=== PATIENT | male | born 1955 | race Caucasian/White ===

== ENCOUNTER 2016-12-08 08:38 | Day surgery (SDC) | payer BC, OTHER ==
[~2016-12-08 08:38] MED LIST: ACETAMINOPHEN 325 MG TABLET PO PRN; ACETYLCHOLINE CHLORIDE 20 DROP KIT IO PRN; BUPIVACAINE HCL/PF 30 ML VIAL IJ PRN; CYCLOPENTOLATE HCL 20 DROP BTL LEFTEYE PRN; DEXTROSE 5%-0.5 NORMAL SALINE 1,000 ML IV PRN; EPINEPHrine 1 MG/ML AMPUL IO PRN; HYALURONATE SODIUM 0.4 ML DISP.SYRIN IO PRN; HYALURONATE SODIUM 0.85 ML DISP.SYRIN IO PRN; LIDOCAINE HCL/PF 200 MG/5 ML AMPUL TP PRN; LIDOCAINE HCL/PF 5 ML VIAL IO PRN; NORMAL SALINE 3 ML BOX IV PRN; TETRACAINE HCL 150 DROP BTL OP PRN
[2016-12-08] MEDS: TROPICAMIDE 150 DROP BTL LEFTEYE PRN ×3 (09:26→09:47)
[2016-12-08] MEDS: PHENYLEPHRINE HCL 50 DROP BTL LEFTEYE PRN ×3 (09:26→09:47)
[2016-12-08] MEDS ORDERED: DEXTROSE 5%-0.5 NORMAL SALINE 1,000 ML IV ONE (09:46)
[2016-12-08 12:01] VITALS: BP 98/75
== END 2016-12-08 08:39 | disposition home or self-care (01) ==
LOC: AMB 08:38
PROVIDERS: ATTEND Ophthalmology
PROC: 08RK3JZ Replacement of Left Lens with Synthetic Substitute, Percutaneous Approach (ICD-10-PCS; principal; 2016-12-08 10:00)
DX: H26.9 Unspecified cataract (principal); I10 Essential (primary) hypertension; I25.10 Atherosclerotic heart disease of native coronary artery without angina pectoris; E78.00 Pure hypercholesterolemia, unspecified; Z87.891 Personal history of nicotine dependence; Z68.25 Body mass index [BMI] 25.0-25.9, adult

== ENCOUNTER 2016-12-22 10:28 | Day surgery (SDC) | payer BC ==
[~2016-12-22 10:28] MED LIST changes: -CYCLOPENTOLATE HCL 20 DROP BTL LEFTEYE PRN; +CYCLOPENTOLATE HCL 20 DROP BTL RIGHTEYE PRN; -TETRACAINE HCL 150 DROP BTL OP PRN
--- OUTSIDE RECORDS SUMMARY | 2016-12-22 10:33 | XMS REPORT | Summary of Care ---
:1955 Author Organization [facility] Address [address] [place] [address] Care Team Providers Name Role Phone Dontrell Quezada Primary Care Physician Encounter Date(s): 11/25/16 - 11/25/16 [facility] Cammy Dodd, [address] [place], [place] [address] Discharge Disposition: 01 Discharged to Home or Self Care Attending Physician: Kota Flores DO Referring Physician: Dontrell Quezada MD Vital Signs Most recent to oldest [Reference Range]: 1 Peripheral Pulse Rate [60-100 bpm] 66 bpm (11/25/16 8:54 AM) Blood Pressure [90-130/60-90 mmHg] 108/67mmHg (11/25/16 8:54 AM) Mean Arterial Pressure, Cuff 81 mmHg (11/25/16 8:54 AM) Height/Length Measured 167 cm (11/25/16 8:54 AM) Weight Dosing 72.40 kg1 (11/25/16 8:59 AM) Weight Measured 72.4 kg (11/25/16 8:54 AM) BSA Measured 1.81 m2 (11/25/16 8:54 AM) Body Mass Index Measured 25.96 kg/m2 (11/25/16 8:54 AM) 1Result Comment: This result was because the dosing weight was either not entered or it is>30 days old. This result is based off: Weight Measured November 25, 2016 08:54:00 [employer]SEM[employer] by Jayleen Barton [employer] Problem List Condition Effective Dates Status Health Status Informant Benign essential Active hypertension(Confirmed) CAD - Coronary artery Active disease(Confirmed) H/O: TIA(Confirmed) Active Lung cancer(Confirmed) Active PURE HYPERCHOLESTEROLEMIA(Confirmed) Active Allergies, Adverse Reactions, Alerts No Known Allergies Medications amoxicillin 875 mg oral tablet 1 tab(s), Oral, BID, # 20 tab(s), 0 Refill(s), Start Date: 08/25/14 16:21:00 CDT , Pharmacy: [facility] Start Date: 08/25/14 Stop Date: 05/25/15 Status: Completedaspirin 325 mg oral tablet 1 tab(s), Oral, Daily, # 30 tab(s), 0 Refill(s) Start Date: 02/24/14 Stop Date: 06/12/15 Status: Completedaspirin 81 mg oral tablet 1 tab(s), Oral, Daily, # 30 tab(s), 0 Refill(s), Start Date: 06/12/15 8:07:00 CDT Start Date: 06/12/15 Status: OrderedAugmentin 875 mg-125 mg oral tablet 1 tab(s), Oral, q12hr, Previously sent to wrong pharmacy, # 14 tab(s), 0 Refill( s), Start Date: 08/30/15 13:12:39 CDT, Pharmacy: [place], [place] Start Date: 08/30/15 Stop Date: 10/27/15 Status: DiscontinuedAugmentin 875 mg-125 mg oral tablet 1 tab(s), Oral, q12hr, X 7 days, # 14 tab(s), 0 Refill(s), Start Date: 08/30/15 12:03:00 CDT, Pharmacy: [facility] Start Date: 08/30/15 Stop Date: 08/30/15 Status: CompletedAzithromycin 5 Day Dose Pack 250 mg oral tablet 1 packet(s), Oral, Per Package Label, as directed on package labeling, # 6 tab(s ), 0 Refill(s), Start Date: 09/20/15 10:42:00 [employer], Pharmacy: [place], [place] Start Date: 09/20/15 Stop Date: 10/27/15 Status: DiscontinuedDilaudid 2 mg oral tablet 1or 2 tabs tab(s), Oral, q4hr, PRN pain severe 8-10, # 60 tab(s), 0 Refill(s), Start Date: 07/27/15 11:58:00 CDT, other reason (Rx) Start Date: 07/27/15 Stop Date: 10/27/15 Status: Discontinuedgabapentin 300 mg oral capsule 1 cap(s), Oral, BID, # 30 cap(s), 3 Refill(s), Start Date: 01/04/16 16:04:00 [employer] , Pharmacy: [place], [place] Start Date: 01/04/16 Stop Date: 10/17/16 Status: Completedlisinopril 10 mg oral tablet 1 tab(s), Oral, Daily, Make appt prior to more fills, # 30 tab(s), 0 Refill(s), Start Date: 05/04/15 12:12:56 CDT, Pharmacy: [place], [place] Start Date: 05/04/15 Stop Date: 05/25/15 Status: Completedlisinopril 10 mg oral tablet 1 tab(s), Oral, Daily, # 30 tab(s), 5 Refill(s), Start Date: 05/25/15 16:14:12 CDT, Pharmacy: [place] Start Date: 05/25/15 Stop Date: 11/29/15 Status: Completedlisinopril 10 mg oral tablet 1 tab(s), Oral, Daily, # 30 tab(s), 5 Refill(s), Start Date: 10/11/14 11:32:55 [employer], Pharmacy: [place] Start Date: 10/11/14 Stop Date: 05/04/15 Status: Completedlisinopril 10 mg oral tablet 1 tab(s), Oral, Daily, # 30 tab(s), 5 Refill(s), Start Date: 03/10/14 13:27:31 CDT, Pharmacy: [facility] Start Date: 03/10/14 Stop Date: 10/11/14 Status: Completedlisinopril 10 mg oral tablet 1 tab(s), Oral, Daily, # 30 tab(s), 5 Refill(s), Start Date: 11/29/15 10:02:47 [employer], Pharmacy: [place] Start Date: 11/29/15 Stop Date: 06/12/16 Status: Completedlisinopril 10 mg oral tablet 1 tab(s), Oral, Daily, # 30 tab(s), 0 Refill(s) Start Date: 02/20/14 Stop Date: 02/20/14 Status: Discontinuedlisinopril 10 mg oral tablet 1 tab(s), Oral, Daily, # 30 tab(s), 0 Refill(s), Pharmacy: [facility] Start Date: 02/20/14 Stop Date: 03/10/14 Status: Completedlisinopril 10 mg oral tablet 1 tab(s), Oral, Daily, # 30 tab(s), 5 Refill(s), Start Date: 06/12/16 14:05:50 CDT, Pharmacy: [place], [place] Start Date: 06/12/16 Status: Orderednortriptyline 10 mg oral capsule 2 cap(s), Oral, HS, 1 qhs times 5 days then increase to 2 qhs, # 60 cap(s), 0 Refill(s), Start Date: 10/24/15 16:07:00 [employer], Pharmacy: [place] Start Date: 10/24/15 Stop Date: 01/04/16 Status: DiscontinuedPlavix 75 mg oral tablet 1 tab(s), Oral, Daily, 2 Refill(s) Start Date: 02/19/12 Stop Date: 05/25/15 Status: DiscontinuedpredniSONE 10 mg oral tablet See Instructions, [id number],47pob5n, 55jjr5n, # 30 QS, 0 Refill(s), Start Date: 09/12/15 15:35:53 [employer], Pharmacy: [place] Start Date: 09/12/15 Stop Date: 09/24/15 Status: CompletedpredniSONE 10 mg oral tablet See Instructions, [id number],30wbu3x,67qdi0w, 63kox1l, # 30 QS, 0 Refill(s), Start Date: 09/12/15 15:32:00 [employer] Start Date: 09/12/15 Stop Date: 09/12/15 Status: Completedsimvastatin 10 mg oral tablet 1 tab(s), Oral, HS, # 30 tab(s), 0 Refill(s) Start Date: 02/24/14 Stop Date: 04/14/14 Status: Discontinuedsimvastatin 10 mg oral tablet 1 tab(s), Oral, HS, # 30 tab(s), 5 Refill(s), Start Date: 04/14/14 14:30:00 CDT , Pharmacy: [facility] Start Date: 04/14/14 Stop Date: 11/24/14 Status: Completedsimvastatin 10 mg oral tablet 1 tab(s), Oral, HS, # 30 tab(s), 5 Refill(s), Start Date: 05/25/15 16:14:29 CDT , Pharmacy: [place], [place] Start Date: 05/25/15 Stop Date: 01/18/16 Status: Completedsimvastatin 10 mg oral tablet 1 tab(s), Oral, HS, # 30 tab(s), 5 Refill(s), Start Date: 07/18/16 9:15:39 CDT, Pharmacy: [place] Start Date: 07/18/16 Status: Orderedsimvastatin 10 mg oral tablet See Instructions, 1 tab(s) Oral HS, unknown unit, 4 Refill(s), # 30, eRx: [place] Start Date: 01/18/16 Stop Date: 07/18/16 Status: Completedsimvastatin 10 mg oral tablet 1 tab(s), Oral, HS, # 30 tab(s), 5 Refill(s), Start Date: 11/24/14 10:22:10 [employer] , Pharmacy: [place] Start Date: 11/24/14 Stop Date: 05/25/15 Status: CompletedTessalon 200 mg oral capsule 1 cap(s), Oral, TID, X 10 days, # 30 cap(s), 0 Refill(s), Start Date: 09/02/15 11:50:00 [employer] Start Date: 09/02/15 Stop Date: 09/12/15 Status: Completedtopiramate 50 mg oral tablet 1 tab(s), Oral, Daily, # 30 tab(s), 5 Refill(s), Start Date: 06/02/16 13:14:57 CDT, Pharmacy: [place] Start Date: 06/02/16 Status: Orderedtopiramate 50 mg oral tablet 1 tab(s), Oral, Daily, # 30 tab(s), 0 Refill(s) Start Date: 02/06/14 Stop Date: 03/10/14 Status: Completedtopiramate 50 mg oral tablet 1 tab(s), Oral, Daily, # 30 tab(s), 0 Refill(s) Start Date: 02/06/14 Stop Date: 02/06/14 Status: Discontinuedtopiramate 50 mg oral tablet 1 tab(s), Oral, Daily, # 30 tab(s), 5 Refill(s), Start Date: 10/19/14 10:14:32 [employer], Pharmacy: [place] Start Date: 10/19/14 Stop Date: 05/25/15 Status: Completedtopiramate 50 mg oral tablet 1 tab(s), Oral, Daily, # 30 tab(s), 5 Refill(s), Start Date: 05/25/15 16:14:04 CDT, Pharmacy: [place] Start Date: 05/25/15 Stop Date: 11/29/15 Status: Completedtopiramate 50 mg oral tablet 1 tab(s), Oral, Daily, # 30 tab(s), 5 Refill(s), Start Date: 03/10/14 13:28:22 CDT, Pharmacy: [facility] Start Date: 03/10/14 Stop Date: 10/19/14 Status: Completedtopiramate 50 mg oral tablet 1 tab(s), Oral, Daily, # 30 tab(s), 5 Refill(s), Start Date: 11/29/15 10:02:39 [employer], Pharmacy: [place] Start Date: 11/29/15 Stop Date: 06/02/16 Status: CompletedTylenol 500 mg, Oral, q6hr interval, PRN pain mild 1-3, 0 Refill(s) Start Date: 04/04/14 Status: OrderedVitamin B12 100 mcg oral tablet 1 tab(s), Oral, Daily, # 30 tab(s), 0 Refill(s) Start Date: 04/04/14 Status: OrderedVitamin C 500 mg oral tablet 1 tab(s), Oral, Daily, # 30 tab(s), 0 Refill(s), Start Date: 04/04/14 11:17:00 CDT Start Date: 04/04/14 Status: Ordered Results No data available for this section Immunizations No data available for this section Procedures Procedure Date Related Diagnosis Body Site Thoracoscopy with possible thoracotomy (KIM)1 07/19/15 Flexible Bronchoscopy in OR2 07/06/15 Mediastinoscopy3 07/06/15 Colonoscopy4 04/07/14 Carotid endarterectomy2011 Hernia repair Vasectomy 1auto-populated from documented surgical [id number] from documented surgical [id number] from documented surgical [id number] from documented surgical [id number] Social History No data available for this section Assessment and Plan No data available for this section
--- OUTSIDE RECORDS SUMMARY | 2016-12-22 10:33 | XMS REPORT | Summary of Care ---
:1955 Author Organization [facility] Address [address] [place] [id number] Care Team Providers Name Role Phone Dontrell Quezada Primary Care Physician Encounter Date(s): 11/25/16 - 11/25/[address] [address] [facility] Discharge Diagnosis: Preop examination Discharge Diagnosis: Essential (primary) hypertension Discharge Diagnosis: Pure hypercholesterolemia, unspecified Discharge Disposition: 01 Discharged to Home or Self Care Attending Physician: Dontrell Quezada MD Referring Physician: Dontrell Quezada MD Vital Signs Most recent to oldest [Reference Range]: 1 Temperature Tympanic [36.6-38.1 DegC] 35.8 DegC *LOW* (11/25/16 2:42 PM) Temperature C to F 96.4 (11/25/16 2:42 PM) Peripheral Pulse Rate [60-100 bpm] 78 bpm (11/25/16 2:42 PM) Blood Pressure [90-130/60-90 mmHg] 110/58mmHg (11/25/16 2:42 PM) Mean Arterial Pressure, Cuff 75 mmHg (11/25/16 2:42 PM) Height/Length Measured 167 cm (11/25/16 2:42 PM) Weight Dosing 72.2 kg (11/25/16 2:42 PM) Weight Measured 72.2 kg (11/25/16 2:42 PM) BSA Measured 1.81 m2 (11/25/16 2:42 PM) Body Mass Index Measured 25.89 kg/m2 (11/25/16 2:42 PM) Problem List Condition Effective Dates Status Health Status Informant Benign essential Active hypertension(Confirmed) CAD - Coronary artery Active disease(Confirmed) H/O: TIA(Confirmed) Active Lung cancer(Confirmed) Active PURE HYPERCHOLESTEROLEMIA(Confirmed) Active Allergies, Adverse Reactions, Alerts No Known Allergies Medications amoxicillin 875 mg oral tablet 1 tab(s), Oral, BID, # 20 tab(s), 0 Refill(s), Start Date: 08/25/14 16:21:00 CDT , Pharmacy: [facility] Start Date: 08/25/14 Stop Date: 05/25/15 Status: [...] 1 tab(s), Oral, q12hr, Previously sent to [facility] pharmacy, # 14 tab(s), 0 Refill( s), Start Date: 08/30/15 13:12:39 CDT, Pharmacy: [place], [place] Start Date: 08/30/15 Stop Date: 10/27/15 Status: DiscontinuedAugmentin 875 mg-125 mg oral tablet 1 tab(s), Oral, q12hr, X 7 days, # 14 tab(s), 0 Refill(s), Start Date: 08/30/15 12:03:00 CDT, Pharmacy: [facility] Start Date: 08/30/15 Stop Date: 08/30/15 Status: CompletedAzithromycin 5 Day Dose Pack 250 mg oral tablet 1 packet(s), Oral, Per Package Label, as directed on package labeling, # 6 tab(s ), 0 Refill(s), Start Date: 09/20/15 10:42:00 [employer], Pharmacy: [place], [place] Start Date: 09/20/15 Stop Date: 10/27/15 Status: DiscontinuedDilaudid 2 mg oral tablet 1or 2 tabs tab(s), Oral, q4hr, PRN pain severe 8-10, # 60 tab(s), 0 Refill(s), Start Date: 07/27/15 11:58:00 CDT, other reason (Rx) Start Date: 07/27/15 Stop Date: 10/27/15 Status: Discontinuedgabapentin 300 mg oral capsule 1 cap(s), Oral, BID, # 30 cap(s), 3 Refill(s), Start Date: 01/04/16 16:04:00 [employer] , Pharmacy: [place], [place] Start Date: 01/04/16 Stop Date: 10/17/16 Status: Completedlisinopril 10 mg oral tablet 1 tab(s), Oral, Daily, Make appt prior to more fills, # 30 tab(s), 0 Refill(s), Start Date: 05/04/15 12:12:56 CDT, Pharmacy: [facility], [place] Start Date: 05/04/15 Stop Date: 05/25/15 Status: Completedlisinopril 10 mg oral tablet 1 tab(s), Oral, Daily, # 30 tab(s), 5 Refill(s), Start Date: 05/25/15 16:14:12 CDT, Pharmacy: [facility] [place], [place] Start Date: 05/25/15 Stop Date: 11/29/15 Status: Completedlisinopril 10 mg oral tablet 1 tab(s), Oral, Daily, # 30 tab(s), 5 Refill(s), Start Date: 10/11/14 11:32:55 [employer]ER, Pharmacy: [facility] [place], [place] Start Date: 10/11/14 Stop Date: 05/04/15 Status: Completedlisinopril 10 mg oral tablet 1 tab(s), Oral, Daily, # 30 tab(s), 5 Refill(s), Start Date: 03/10/14 13:27:31 CDT, Pharmacy: [facility] Start Date: 03/10/14 Stop Date: 10/11/14 Status: Completedlisinopril 10 mg oral tablet 1 tab(s), Oral, Daily, # 30 tab(s), 5 Refill(s), Start Date: 11/29/15 10:02:47 [employer]ER, Pharmacy: [facility] [place], [place] Start Date: 11/29/15 Stop Date: 06/12/16 Status: Completedlisinopril 10 mg oral tablet 1 tab(s), Oral, Daily, # 30 tab(s), 0 Refill(s) Start Date: 02/20/14 Stop Date: 02/20/14 Status: Discontinuedlisinopril 10 mg oral tablet 1 tab(s), Oral, Daily, # 30 tab(s), 0 Refill(s), Pharmacy: [facility] Start Date: 02/20/14 Stop Date: 03/10/14 Status: Completedlisinopril 10 mg oral tablet 1 tab(s), Oral, Daily, # 30 tab(s), 5 Refill(s), Start Date: 06/12/16 14:05:50 CDT, Pharmacy: [place], [place] Start Date: 06/12/16 Status: Orderednortriptyline 10 mg oral capsule 2 cap(s), Oral, HS, 1 qhs times 5 days then increase to 2 qhs, # 60 cap(s), 0 Refill(s), Start Date: 10/24/15 16:07:00 [employer]ER, Pharmacy: [place] Start Date: 10/24/15 Stop Date: 01/04/16 Status: DiscontinuedPlavix 75 mg oral tablet 1 tab(s), Oral, Daily, 2 Refill(s) Start Date: 02/19/12 Stop Date: 05/25/15 Status: DiscontinuedpredniSONE 10 mg oral tablet See Instructions, [id number],[id number],26evl9v, 47byh8r, # 30 QS, 0 Refill(s), Start Date: 09/12/15 15:35:53 [employer]ER, Pharmacy: [place], [place] Start Date: 09/12/15 Stop Date: 09/24/15 Status: CompletedpredniSONE 10 mg oral tablet See Instructions, [id number],[id number],46eqf8i, 39dlt2c, # 30 QS, 0 Refill(s), Start Date: 09/12/15 15:32:00 [employer] Start Date: 09/12/15 Stop Date: 09/12/15 Status: Completedsimvastatin 10 mg oral tablet 1 tab(s), Oral, HS, # 30 tab(s), 0 Refill(s) Start Date: 02/24/14 Stop Date: 04/14/14 Status: Discontinuedsimvastatin 10 mg oral tablet 1 tab(s), Oral, HS, # 30 tab(s), 5 Refill(s), Start Date: 04/14/14 14:30:00 CDT , Pharmacy: [facility] Start Date: 04/14/14 Stop Date: 11/24/14 Status: Completedsimvastatin 10 mg oral tablet 1 tab(s), Oral, HS, # 30 tab(s), 5 Refill(s), Start Date: 05/25/15 16:14:29 CDT , Pharmacy: [place], [place] Start Date: 05/25/15 Stop Date: 01/18/16 Status: Completedsimvastatin 10 mg oral tablet 1 tab(s), Oral, HS, # 30 tab(s), 5 Refill(s), Start Date: 07/18/16 9:15:39 CDT, Pharmacy: [place], [place] Start Date: 07/18/16 Status: Orderedsimvastatin 10 mg oral tablet See Instructions, 1 tab(s) Oral HS, unknown unit, 4 Refill(s), # 30, eRx: [place] Start Date: 01/18/16 Stop Date: 07/18/16 Status: Completedsimvastatin 10 mg oral tablet 1 tab(s), Oral, HS, # 30 tab(s), 5 Refill(s), Start Date: 11/24/14 10:22:10 [employer]ER , Pharmacy: [place] Start Date: 11/24/14 Stop Date: 05/25/15 Status: CompletedTessalon 200 mg oral capsule 1 cap(s), Oral, TID, X 10 days, # 30 cap(s), 0 Refill(s), Start Date: 09/02/15 11:50:00 [employer]ER Start Date: 09/02/15 Stop Date: 09/12/15 Status: Completedtopiramate 50 mg oral tablet 1 tab(s), Oral, Daily, # 30 tab(s), 5 Refill(s), Start Date: 06/02/16 13:14:57 CDT, Pharmacy: [place] Start Date: 06/02/16 Status: Orderedtopiramate 50 [...] tab(s), 5 Refill(s), Start Date: 10/19/14 10:14:32 [employer]TER PR[employer]ER, Pharmacy: [place] Start Date: 10/19/14 Stop Date: 05/25/15 Status: Completedtopiramate 50 mg oral tablet 1 tab(s), Oral, Daily, # 30 tab(s), 5 Refill(s), Start Date: 05/25/15 16:14:04 CDT, Pharmacy: [place] Start Date: 05/25/15 Stop Date: 11/29/15 Status: Completedtopiramate 50 mg oral tablet 1 tab(s), Oral, Daily, # 30 tab(s), 5 Refill(s), Start Date: 03/10/14 13:28:22 CDT, Pharmacy: [facility] Start Date: 03/10/14 Stop Date: 10/19/14 Status: Completedtopiramate 50 mg oral tablet 1 tab(s), Oral, Daily, # 30 tab(s), 5 Refill(s), Start Date: 11/29/15 10:02:39 [employer]TER PR[employer] T[employer]ER, Pharmacy: [place], [place] Start Date: 11/29/15 Stop Date: 06/02/16 [...] Hernia repair Vasectomy 1auto-populated from documented surgical [id number] from documented surgical [id number] from documented surgical [id number] from documented surgical [id number] Social History No data available for this section Assessment and Plan No data available for this section
--- OUTSIDE RECORDS SUMMARY | 2016-12-22 10:33 | XMS REPORT | Summary of Care ---
:1955 Author Organization [facility] Address [address] [place] [id number] Care Team Providers Name Role Phone Dontrell Quezada Graciela Primary Care Physician Encounter Date(s): 11/25/16 - 11/25/[address] [id number] Discharge Disposition: 01 Discharged to Home or Self Care Attending Physician: Rodrigo Hernandez MD Admitting Physician: Rodrigo Hernandez MD Vital Signs No data available for this section Problem List Condition Effective Dates Status Health Status Informant Benign essential Active hypertension(Confirmed) CAD - Coronary artery Active disease(Confirmed) H/O: TIA(Confirmed) Active Lung cancer(Confirmed) Active PURE HYPERCHOLESTEROLEMIA(Confirmed) Active Allergies, Adverse Reactions, Alerts No Known Allergies Medications amoxicillin 875 mg oral tablet 1 tab(s), Oral, BID, # 20 tab(s), 0 Refill(s), Start Date: 08/25/14 16:21:00 CDT , Pharmacy: [facility] Start Date: 08/25/14 Stop Date: 05/25/15 [...] s), Start Date: 08/30/15 13:12:39 CDT, Pharmacy: [place], [place] Start Date: 08/30/15 Stop Date: 10/27/15 Status: DiscontinuedAugmentin 875 mg-125 mg oral tablet 1 tab(s), Oral, q12hr, X 7 days, # 14 tab(s), 0 Refill(s), Start Date: 08/30/15 12:03:00 CDT, Pharmacy: [facility] Start Date: 08/30/15 Stop Date: 08/30/15 Status: CompletedAzithromycin 5 Day Dose Pack 250 mg oral tablet 1 packet(s), Oral, Per Package Label, as directed on package labeling, # 6 tab(s ), 0 Refill(s), Start Date: 09/20/15 10:42:00 CHIPPER OPERATOR, 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[place], [place] Start Date: 09/20/15 Stop Date: 10/27/15 Status: DiscontinuedDilaudid 2 mg oral tablet 1or 2 tabs tab(s), Oral, q4hr, PRN pain severe 8-10, # 60 tab(s), 0 Refill(s), Start Date: 07/27/15 11:58:00 CDT, other reason (Rx) Start Date: 07/27/15 Stop Date: 10/27/15 Status: Discontinuedgabapentin 300 mg oral capsule 1 cap(s), Oral, BID, # 30 cap(s), 3 Refill(s), Start Date: 01/04/16 16:04:00 CHIPPER OPERATOR , 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[place], [place] Start Date: 01/04/16 Stop Date: 10/17/16 Status: Completedlisinopril 10 mg oral tablet 1 tab(s), Oral, Daily, Make appt prior to more fills, # 30 tab(s), 0 Refill(s), Start Date: 05/04/15 12:12:56 CDT, Pharmacy: [place], [place] Start Date: 05/04/15 Stop Date: 05/25/15 Status: Completedlisinopril 10 mg oral tablet 1 tab(s), Oral, Daily, # 30 tab(s), 5 Refill(s), Start Date: 05/25/15 16:14:12 CDT, Pharmacy: [facility], [place] Start Date: 05/25/15 Stop Date: 11/29/15 Status: Completedlisinopril 10 mg oral tablet 1 tab(s), Oral, Daily, # 30 tab(s), 5 Refill(s), Start Date: 10/11/14 11:32:55 CHIPPER OPERATOR, 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[place], [place] Start Date: 10/11/14 Stop Date: 05/04/15 Status: Completedlisinopril 10 mg oral tablet 1 tab(s), Oral, Daily, # 30 tab(s), 5 Refill(s), Start Date: 03/10/14 13:27:31 CDT, Pharmacy: [facility] Start Date: 03/10/14 Stop Date: 10/11/14 Status: Completedlisinopril 10 mg oral tablet 1 tab(s), Oral, Daily, # 30 tab(s), 5 Refill(s), Start Date: 11/29/15 10:02:47 CHIPPER OPERATOR, 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[place], [place] Start Date: 11/29/15 Stop Date: 06/12/16 Status: Completedlisinopril 10 mg oral tablet 1 tab(s), Oral, Daily, # 30 tab(s), 0 Refill(s) Start Date: 02/20/14 Stop Date: 02/20/14 Status: Discontinuedlisinopril 10 mg oral tablet 1 tab(s), Oral, Daily, # 30 tab(s), 0 Refill(s), Pharmacy: [facility] Start Date: 02/20/14 Stop Date: 03/10/14 Status: Completedlisinopril 10 mg oral tablet 1 tab(s), Oral, Daily, # 30 tab(s), 5 Refill(s), Start Date: 06/12/16 14:05:50 CDT, Pharmacy: [place], [place] Start Date: 06/12/16 Status: Orderednortriptyline 10 mg oral capsule 2 cap(s), Oral, HS, 1 qhs times 5 days then increase to 2 qhs, # 60 cap(s), 0 Refill(s), Start Date: 10/24/15 16:07:00 CHIPPER OPERATOR, 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[facility], [place] Start Date: 10/24/15 Stop Date: 01/04/16 Status: DiscontinuedPlavix 75 mg oral tablet 1 tab(s), Oral, Daily, 2 Refill(s) Start Date: 02/19/12 Stop Date: 05/25/15 Status: DiscontinuedpredniSONE 10 mg oral tablet See Instructions, [id number], [id number], # 30 QS, 0 Refill(s), Start Date: 09/12/15 15:35:53 CHIPPER OPERATOR, 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[place], [place] Start Date: 09/12/15 Stop Date: 09/24/15 Status: CompletedpredniSONE 10 mg oral tablet See Instructions, [id number],[id number], [id number], # 30 QS, 0 Refill(s), Start Date: 09/12/15 15:32:00 CHIPPER OPERATOR Start Date: 09/12/15 Stop Date: 09/12/15 Status: Completedsimvastatin 10 mg oral tablet 1 tab(s), Oral, HS, # 30 tab(s), 0 Refill(s) Start Date: 02/24/14 Stop Date: 04/14/14 Status: Discontinuedsimvastatin 10 mg oral tablet 1 tab(s), Oral, HS, # 30 tab(s), 5 Refill(s), Start Date: 04/14/14 14:30:00 CDT , Pharmacy: [facility] Start Date: 04/14/14 Stop Date: 11/24/14 Status: Completedsimvastatin 10 mg oral tablet 1 tab(s), Oral, HS, # 30 tab(s), 5 Refill(s), Start Date: 05/25/15 16:14:29 CDT , Pharmacy: [place], [place] Start Date: 05/25/15 Stop Date: 01/18/16 Status: Completedsimvastatin 10 mg oral tablet 1 tab(s), Oral, HS, # 30 tab(s), 5 Refill(s), Start Date: 07/18/16 9:15:39 CDT, Pharmacy: [place], [place] Start Date: 07/18/16 Status: Orderedsimvastatin 10 mg oral tablet See Instructions, 1 tab(s) Oral HS, unknown unit, 4 Refill(s), # 30, [facility]: [place], [place] Start Date: 01/18/16 Stop Date: 07/18/16 Status: Completedsimvastatin 10 mg oral tablet 1 tab(s), Oral, HS, # 30 tab(s), 5 Refill(s), Start Date: 11/24/14 10:22:10 CHIPPER OPERATOR , 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[place], [place] Start Date: 11/24/14 Stop Date: 05/25/15 Status: CompletedTessalon 200 mg oral capsule 1 cap(s), Oral, TID, X 10 days, # 30 cap(s), 0 Refill(s), Start Date: 09/02/15 11:50:00 CHIPPER OPERATOR Start Date: 09/02/15 Stop Date: 09/12/15 Status: Completedtopiramate 50 mg oral tablet 1 tab(s), Oral, Daily, # 30 tab(s), 5 Refill(s), Start Date: 06/02/16 13:14:57 CDT, Pharmacy: [place], [place] Start Date: 06/02/16 Status: Orderedtopiramate 50 [...] tab(s), 5 Refill(s), Start Date: 10/19/14 10:14:32 CHIPPER OPERATOR, 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[place], [place] Start Date: 10/19/14 Stop Date: 05/25/15 Status: Completedtopiramate 50 mg oral tablet 1 tab(s), Oral, Daily, # 30 tab(s), 5 Refill(s), Start Date: 05/25/15 16:14:04 CDT, Pharmacy: [place], [place] Start Date: 05/25/15 Stop Date: 11/29/15 Status: Completedtopiramate 50 mg oral tablet 1 tab(s), Oral, Daily, # 30 tab(s), 5 Refill(s), Start Date: 03/10/14 13:28:22 CDT, Pharmacy: [facility] Start Date: 03/10/14 Stop Date: 10/19/14 Status: Completedtopiramate 50 mg oral tablet 1 tab(s), Oral, Daily, # 30 tab(s), 5 Refill(s), Start Date: 11/29/15 10:02:39 CHIPPER OPERATOR, Pharmacy: [facility] [place], [place] Start Date: 11/29/15 Stop Date: 06/02/16 [...] CDT Start Date: 04/04/14 Status: Ordered Results Patient Viewable Results Most recent to oldest [Reference Range]: 1 WBC [4.8-10.8 thou/mm3] 8.5 thou/mm3 (11/25/16 6:39 AM) RBC [4.60-6.00 Mil/mm3] 4.46 Mil/mm3 *LOW* (11/25/16 6:39 AM) Hgb [14.0-18.0 g/dL] 15.3 g/dL (11/25/16 6:39 AM) Hct [42.0-52.0 %] 44.5 % (11/25/16 6:39 AM) MCV [80.0-94.0 fL] 99.8 fL *HI* (11/25/16 6:39 AM) MCH [25.0-38.0 pg/cell] 34.3 pg/cell (11/25/16 6:39 AM) MCHC [31.0-37.0 g/dL] 34.4 g/dL (11/25/16 6:39 AM) RDW [1.0-48.0 fL] 45.0 fL (11/25/16 6:39 AM) Platelet [130-400 thou/mm3] 247 thou/mm3 (11/25/16 6:39 AM) Neutrophils % Auto [50.0-75.0 %] 66.4 % (11/25/16 6:39 AM) Immature Granulocyte Auto [0.1-2.0 %] 0.7 % (11/25/16 6:39 AM) Lymphocytes % Auto [15.0-41.0 %] 23.5 % (11/25/16 6:39 AM) Monocytes % Auto [2.0-10.0 %] 5.4 % (11/25/16 6:39 AM) Eosinophils % Auto [0.0-6.0 %] 3.1 % (11/25/16 6:39 AM) Basophil % Auto [0.0-1.0 %] 0.9 % (11/25/16 6:39 AM) Neutrophils Absolute [1.5-5.9 thou/mm3] 5.6 thou/mm3 (11/25/16 6:39 AM) Immature Gran Absolute [0.01-0.03 thou/mm3] 0.06 thou/mm3 *HI* (11/25/16 6:39 AM) Lymphocytes Absolute [1.5-4.0 thou/mm3] 2.0 thou/mm3 (11/25/16 6:39 AM) Monocytes Absolute [0.0-0.9 thou/mm3] 0.5 thou/mm3 (11/25/16 6:39 AM) Eosinophil Absolute [0.0-0.7 thou/mm3] 0.3 thou/mm3 (11/25/16 6:39 AM) Basophil Absolute [0.0-0.2 thou/mm3] 0.1 thou/mm3 (11/25/16 6:39 AM) Sodium Lvl [135-144 mEq/L] 141 mEq/L (11/25/16 6:39 AM) Potassium Lvl [3.3-4.8 mEq/L] 4.4 mEq/L (11/25/16 6:39 AM) Chloride Lvl [98-107 mEq/L] 106 mEq/L (11/25/16 6:39 AM) Bicarbonate Lvl [22-30 mmol/L] 24 mmol/L (11/25/16 6:39 AM) Anion Gap [10.0-20.0] 15.4 (11/25/16 6:39 AM) Glucose Lvl [70-108 mg/dL] 97 mg/dL (11/25/16 6:39 AM) BUN [7-21 mg/dL] 17 mg/dL (11/25/16 6:39 AM) Creatinine Lvl [0.50-1.20 mg/dL] 1.21 mg/dL *HI* (11/25/16 6:39 AM) BUN/Creat Ratio 14.0 *NA* (11/25/16 6:39 AM) eGFR AA [>=60] >60 (11/25/16 6:39 AM) eGFR DAVID [>=60] >60 (11/25/16 6:39 AM) Calcium Lvl [8.6-10.2 mg/dL] 9.1 mg/dL (11/25/16 6:39 AM) Total Protein [6.4-8.3 g/dL] 6.7 g/dL (11/25/16 6:39 AM) Albumin Lvl [3.5-5.2 g/dL] 4.3 g/dL (11/25/16 6:39 AM) Globulin 2.4 *NA* (11/25/16 6:39 AM) A/G Ratio [0.9-1.8] 1.8 (11/25/16 6:39 AM) Bilirubin Total [0.1-1.0 mg/dL] 0.2 mg/dL (11/25/16 6:39 AM) Alkaline Phosphatase [39-129 unit/L] 51 unit/L (11/25/16 6:39 AM) AST [0-39 unit/L] 17 unit/L (11/25/16 6:39 AM) ALT [0-40 unit/L] 12 unit/L (11/25/16 6:39 AM) Estimated Creatinine Clearance 58.78 mL/min (11/25/16 7:21 AM) Whole Blood Glucose [70-108 mg/dL] 88 mg/dL1 (11/25/16 6:52 AM) 1Result Comment: Tile Setter Apprentice: [id number] Rafita Dhillon Immunizations No data available for this section Procedures Procedure Date Related Diagnosis Body Site Thoracoscopy with possible thoracotomy (KIM)1 07/19/15 Flexible Bronchoscopy in OR2 07/06/15 Mediastinoscopy3 07/06/15 Colonoscopy4 04/07/14 Carotid endarterectomy2011 Hernia repair Vasectomy 1auto-populated from documented surgical [id number] from documented surgical [id number] from documented surgical [id number] from documented surgical [id number] Social History No data available for this section Assessment and Plan No data available for this section
[2016-12-22] MEDS: PHENYLEPHRINE HCL 50 DROP BTL RIGHTEYE PRN ×3 (11:24→12:03)
[2016-12-22] MEDS: TROPICAMIDE 150 DROP BTL RIGHTEYE PRN ×3 (11:24→12:03)
[2016-12-22] MEDS: TETRACAINE HCL 150 DROP BTL OP PRN ×2 (11:44→12:58)
[2016-12-22 14:29] VITALS: BP 100/65
== END 2016-12-22 10:29 | disposition home or self-care (01) ==
LOC: AMB 10:28
PROVIDERS: ATTEND Ophthalmology
PROC: 08RJ3JZ Replacement of Right Lens with Synthetic Substitute, Percutaneous Approach (ICD-10-PCS; principal; 2016-12-22 12:00)
DX: H26.9 Unspecified cataract (principal); I10 Essential (primary) hypertension; I25.10 Atherosclerotic heart disease of native coronary artery without angina pectoris; E78.00 Pure hypercholesterolemia, unspecified; Z68.25 Body mass index [BMI] 25.0-25.9, adult; Z87.891 Personal history of nicotine dependence